=== PATIENT | male | born 1960 | race Caucasian/White ===

== ENCOUNTER 2019-09-27 22:15 | Emergency (ER) | payer OTHER ==
[~2019-09-27] VITALS: Ht 172.7 cm; Wt 105.2 kg
[~2019-09-27 22:15] MED LIST: ANAPROX DS550 MG PO; ATIVAN0.5 MG PO; FENOFIBRATE160 MG PO; KEFLEX500 MG PO; LISINOPRIL-HCT1 EAC1 PO; MEDROLDOSEPACK PO; NOHOMEMEDICATIONS; NORCO 5-325 TA1 EACH PO; PERCOCET 5-3251 EACH PO; SIMVASTATIN40 MG PO; TAMSULOSIN HCL0.4 M1 PO; TIZANIDINE HCL4 MG PO; UNKNOWN CHOLESTEROL; XANAX 0.25 MG0.25 MG PO
[2019-09-27] MEDS ORDERED: LIPITOR 20 MG T20 M1 PO (22:42)
[2019-09-27 23:10] LABS: ABSOLUTE BASOPHILS 0.1 thou/uL (0.0-0.2); ABSOLUTE EOSINOPHILS 0.1 thou/uL (0.0-0.7); ABSOLUTE LYMPHOCYTES 2.8 thou/uL (0.8-5.3); ABSOLUTE MONOCYTES 0.7 thou/uL (0.0-1.2); ABSOLUTE NEUTROPHILS 4.4 thou/uL (1.6-8.1); BASOPHILS 1.1 %; EOSINOPHILS 1.4 %; HEMATOCRIT 46.3 % (42.0-52.0); HEMOGLOBIN 16.6 gm/dL (14.0-18.0); LYMPHOCYTES 34.1 %; MCH 31.6 pg (26.0-34.0); MCHC 35.8 g/dL (28.0-37.0); MCV 88.2 fL (80.0-100.0); MONOCYTES 9.2 %; MPV 9.2 fl. (7.2-11.1); NUCLEATED RBCS 0 /100WBC; PLATELET COUNT* 257 thou/uL (150-400); POLYS 54.2 %; RBC 5.25 mil/uL (4.50-6.00); RDW-CV 12.7 % (10.5-14.5); WBC 8.2 thou/uL (4.0-11.0)
[2019-09-27 23:20] LABS: CALCIUM 8.4 mg/dL (8.5-10.1); CREATININE 0.8 mg/dL (0.6-1.3); POTASSIUM 3.4 mmol/L (3.5-5.1)
[2019-09-27 23:32] LABS: ALBUMIN 3.9 g/dL (3.4-5.0); TOTAL BILIRUBIN 0.6 mg/dL (<0.1-1.0); TOTAL PROTEIN 7.4 g/dL (6.4-8.2)
[2019-09-28 00:59] LABS: URINE BILIRUBIN NEGATIVE (Negative); URINE BLOOD NEGATIVE (Negative); URINE CLARITY CLEAR; URINE COLOR YELLOW; URINE GLUCOSE-RANDOM NEGATIVE (Negative); URINE KETONES NEGATIVE (Negative); URINE LEUKOCYTES-REFLEX NEGATIVE (Negative); URINE NITRITE-REFLEX NEGATIVE (Negative); URINE PROTEIN NEGATIVE (Negative); URINE SPECIFIC GRAVITY 1.015 (1.005-1.030); URINE UROBILINOGEN 0.2 E.U./dl (0.2-1.0)
[2019-09-28] MEDS ORDERED: HYDROCODON-ACE1 EAC8 PO (01:42)
[2019-09-28 01:49] VITALS: BP 118/78
--- NOTE | 2019-09-28 11:11 | EKG ---
[place] [address] ELECTROCARDIOGRAM REPORT Name: JULIA SUTTON Room: [facility]#: [id number] Admission: 09/27/19 Attend Phys: Discharge: 09/28/19 Date of : 64 Date of Service: 09/27/193 Report #: [id number] THIS REPORT FOR: //name// [facility] ED Test Date: 2019-09-27 Test Time: 23:03:34 Pat Name: JULIA SUTTON Department: Room: Gender: Legal Records Manager: : [id number] Requested By: Sasha Lehman Order Number: [id number] MD: Isidro Griffin Measurements Intervals [place] Rate: 61 P: 27 MN: 168 QRS: -4 QRSD: 97 T: 14 QT: 421 QTc: 424 Interpretive Statements Sinus rhythm Compared to ECG 08/13/2013 12:36:33 No significant changes Electronically Signed On 09-28-2019 11:09:54 CUT OFF TENDER GLASS by Isidro Griffin [email or web address] <ELECTRONICALLY SIGNED> By: Isidro Griffin MD, [facility] 09/28/19 1109 02 02 Isidro Griffin MD, FAC /EPI
== END 2019-09-28 01:49 | disposition home or self-care (01) ==
LOC: M.ERS 22:15
PROVIDERS: Emergency Medicine
DX: K80.20 Calculus of gallbladder without cholecystitis without obstruction (principal); I10 Essential (primary) hypertension; E78.00 Pure hypercholesterolemia, unspecified; Z87.442 Personal history of urinary calculi; Z90.49 Acquired absence of other specified parts of digestive tract